=== PATIENT | female | born 1950 | race Caucasian/White ===

== ENCOUNTER 2020-09-08 18:42 | Emergency (ER) | payer MEDICARE, SELFPAY ==
--- NOTE | ~2020-09-08 | US_ITS ---
EXAMINATION: US ABDOMEN LIMITED CLINICAL INFORMATION: Right upper quadrant/epigastric pain.. COMPARISON: None TECHNIQUE: Real-time imaging of the right upper quadrant abdominal viscera. FINDINGS: PANCREAS: Visualized portions unremarkable. Tail obscured by interposed bowel gas. LIVER: Normal. The liver is normal in size. The liver contour is normal. Parenchymal echogenicity is normal. No focal hepatic lesion. There is no intrahepatic biliary duct dilatation seen. GALLBLADDER: The gallbladder is physiologically distended without evidence of stones, sludge, wall thickening or pericholecystic fluid. There are couple polyps measuring 3 to 4 mm, statistically cholesterolosis. Sonographic [place] sign is positive, nonspecific in the absence of additional imaging evidence of cholecystitis.. COMMON BILE DUCT: Normal in caliber measuring 0.8 cm in diameter. RIGHT KIDNEY: Normal. No hydronephrosis. No renal calculi or focal parenchymal lesions. The kidney measures 10.1 cm in maximum dimension. FREE FLUID: None. US/US abdomen limited IMPRESSION: No sonographic evidence of cholecystitis. There are couple polyps measuring 4 mm or less, statistically cholesterolosis. As a precaution, consider follow-up ultrasound in one year.
--- NOTE | ~2020-09-08 | XR_ITS ---
EXAMINATION: XR CHEST CLINICAL INFORMATION: Posterior rib pain COMPARISON: 04/30/2015 TECHNIQUE: 2 views of the chest were obtained. FINDINGS: No significant abnormality is noted involving the heart, lungs, mediastinum, bony thorax or soft tissues. XR/XR chest 2V IMPRESSION: Unremarkable examination.
[2020-09-08 19:00] VITALS: BP 140/74; PULSE 87; RESP 18; TEMP 37; O2SAT 99; BMI 32.1
[2020-09-08 22:38] VITALS: BP 144/74; PULSE 87; RESP 18; TEMP 36.9; O2SAT 98
--- NOTE | 2020-09-08 23:00 | ECG_ITS ---
Test Reason : WEAKNESS Blood Pressure : / mmHG Vent. Rate : 076 BPM Atrial Rate : 076 BPM P-R Int : 202 ms QRS Dur : 116 ms QT Int : 440 ms P-R-T Axes : 038 -48 -12 degrees QTc Int : 495 ms Normal sinus rhythm Left ventricular hypertrophy with QRS widening Prolonged QT Abnormal ECG No previous ECGs available Referred By: Carie Camejo Electronically Signed By:RAD SAMANIEGO
--- NOTE | 2020-09-08 23:17 | ED_ITS ---
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 She states she is up-to-date on vaccinations. Patient states that she began having back discomfort that started on Friday and states that her ?whole entire back bothers her to involve her abdomen as well as her legs?. She denies any fever but states she has had chills as well as urinary burning and noted frequency. She denies any recent cough, sore throat, chest pain/shortness of breath/palpitations. In addition, patient denies any recent falls. Related Data Allergies Allergy/AdvReac Type Severity Reaction Status Date / Time bee pollen [BEE STINGS] Allergy Unknown HIVES Unverified 12/09/19 17:43 cat dander Allergy Unknown EYES Unverified 12/09/19 17:43 SWELLING Bee Zee Allergy Unknown Uncoded 08/25/17 00:00 Review of Systems Review of Systems: Pertinent positives and negatives as stated in HPI 10 point review of systems is otherwise negative. [facility] Past Medical History Source: nursing notes reviewed Social History Social History Advance Directives: No Advance Directives Information Provided: No Physical Exam Vital Signs: Vital Signs: Last Vital Signs Temp 98.4 F 09/08/20 22:38 Pulse 82 09/09/20 02:00 Resp 17 09/09/20 02:00 BP 145/79 H 09/09/20 02:00 Pulse Ox 99 09/09/20 02:00 Body Mass Index 32.1 VITAL SIGNS: Reviewed. GENERAL: Well developed, well nourished, in no acute distress. HEAD: Normocephalic/atraumatic, EYES: PERRLA, EOMI OROPHARYNX: no oral lesions noted, posterior pharynx clear LUNGS: Normal breath sounds. No adventitious sounds or accessory muscle use. SpO2<98> CARDIOVASCULAR: Regular rate and rhythm without noted murmurs ABDOMEN: Soft, non-tender, non-distended with bowel sounds. BACK: A jumpy when spine is palpated but nontender, no CVA tenderness MUSCULOSKELETAL: No tenderness, deformities, or effusions noted on gross inspection. EXTREMITIES: No cyanosis, clubbing or edema. SKIN: Inspection of the skin reveals no rashes NEUROLOGIC: Alert and oriented x 4. Strength and sensation to light touch were grossly intact x 4, 5/5 symmetrical strength, sensation intact. Course Course Course Narrative: 70-year-old female with history and clinical presentation that is mildly ambiguous in nature but will proceed with evaluation for suspected UTI and possible pyelonephritis. Review of all investigations shows a mildly elevated platelet count but otherw ise there is no further evidence to explain patient's symptoms. Patient provided with combination analgesics and all results were discussed with her bedside. She was discharged home in stable condition with instructions to follow-up with her primary care provider for re-evaluation further outpatient management. Medical Decision Making Lab Data Result diagrams: 09/08/20 23:26 09/08/20 23:26 Labs: Lab Results 09/08/20 09/08/20 09/09/20 Range/Units 23:26 23:26 01:22 WBC 10.3 (4.8-10.8) X10*3/uL RBC 4.39 (4.20-5.50) X10*6/uL Hgb 13.4 (12.0-16.0) g/dl Hct 39.1 (37-47) % MCV 89.1 (80-98) fL MCH 30.5 (27.0-33.0) pg MCHC 34.3 (31.0-35.0) g/dl RDW 13.8 (11.0-16.0) % Plt Count 542 H (160-400) X10*3/uL MPV 10.5 (9.4-12.3) fL Immature Gran % (Auto) 0.7 H (0.0-0.4) % Neut % (Auto) 76.6 H (45-73) % Lymph % (Auto) 13.1 L (20-40) % [place] % (Auto) 5.5 (2-11) % Eos % (Auto) 3.3 (0-4) % Baso % (Auto) 0.8 (0-2) % Lymph # (Auto) 1.4 (1.2-4.9) X10*3/uL [place] # (Auto) 0.6 (0.1-1.2) X10*3/uL Eos # (Auto) 0.3 (0.0-0.4) X10*3/uL Baso # (Auto) 0.1 (0.0-0.2) X10*3/uL Abs Immat Gran (auto) 0.07 H (0.00-0.03) X10*3/uL Absolute Neuts (auto) 7.9 (2.0-8.3) X10*3/uL Absolute Nucleated RBC 0.000 (0.0-0.012) X10*3/uL Nucleated RBC % (auto) 0.0 (0.0-0.2) /100WBC Sodium 139 (135-145) mmol/L Potassium 4.0 (3.3-5.1) mmol/L Chloride 105 (96-108) mmol/L Carbon Dioxide 22 (22-29) mmol/L Anion Gap 16 (12-20) BUN 15 (9-16) mg/dL Creatinine 0.83 (0.5-1.4) mg/dL Estim Creat Clear Calc 60.1 Estimated GFR > 60 Random Glucose 100 (60-115) mg/dL Calcium 9.3 (8.4-10.2) mg/dL Total Bilirubin 0.4 (0.0-1.0) mg/dL AST 81 H (5-31) U/L ALT 120 H (0-31) U/L Alkaline Phosphatase 122 H (39-117) U/L Total Protein 7.2 (6.5-8.0) g/dL Albumin 3.9 (3.5-5.0) g/dL Urine Color DARK YELLOW Urine Appearance CLEAR Urine pH 5.5 (5.0-8.0) Ur Specific [place] >= 1.030 H (1.005-1.025) Urine Protein 1+ H (NEG-TRACE) MG/DL Urine Glucose (UA) 100 H (NEG) MG/DL Urine Ketones 5 (NEG) MG/DL Urine Blood NEG (NEG) Urine Nitrite NEG (NEG) Ur Leukocyte Esterase NEG (NEG) Urine RBC 0-2 (0) /HPF Urine WBC 0-2 (0-4) /HPF Ur Squamous Epith Cells 2+ /LPF Calcium Oxalate Crystal 1+ /LPF Urine Bacteria NONE /LPF Urine Mucus 4+ /LPF ECG Data Attestation: I personally reviewed and interpreted this ECG as follows: Prior ECG tracings: not available for review Interpretation: Normal sinus rhythm, HR -76, no evidence of ischemia, RI/QRS/QTC are mildly prolonged. Discharge Plan Discharge Clinical Impression: Weakness Patient Disposition: Home, Self-Care Instructions: Weakness (ED) Additional Instructions: 1. Resume all home medications as prescribed. 2. Follow-up with your primary care provider in the next 2-3 days for re-eval uation and further outpatient management. Return to the ER for any acute worsening of symptoms. Referrals: Jay Jay Gibbons MD [Primary Care Provider] - 2 days (Re-evaluation and assessment of patient's presentation to the ER for weakness and ?all over body discomfort?, but no acute findings were identified to better explain patient's condition.)
[2020-09-08] MEDS: 0.9 % Sodium Chloride 1,000 ML 999 ML IV (23:29)
[2020-09-08 23:34] LABS: MANUAL DIFF FLAG NO
[2020-09-08 23:35] LABS: Basophils Absolute Auto 0.1 X10*3/uL (0.0-0.2); Basophils Percent Auto 0.8 % (0-2); Eosinophils Absolute Auto 0.3 X10*3/uL (0.0-0.4); Eosinophils Percent Auto 3.3 % (0-4); Hematocrit 39.1 % (37-47); Hemoglobin 13.4 g/dl (12.0-16.0); Imm Gran Abs Auto 0.07 X10*3/uL (0.00-0.03); Imm Gran Pct Auto 0.7 % (0.0-0.4); Lymphocytes Absolute Auto 1.4 X10*3/uL (1.2-4.9); Lymphocytes Percent Auto 13.1 % (20-40); Mean Corpuscular HGB Conc 34.3 g/dl (31.0-35.0); Mean Corpuscular Hemoglobin 30.5 pg (27.0-33.0); Mean Corpuscular Volume 89.1 fL (80-98); Mean Platelet Volume 10.5 fL (9.4-12.3); Monocytes Absolute Auto 0.6 X10*3/uL (0.1-1.2); Monocytes Percent Auto 5.5 % (2-11); Neutrophils Absolute Auto 7.9 X10*3/uL (2.0-8.3); Neutrophils Percent Auto 76.6 % (45-73); Platelet Count 542 X10*3/uL (160-400); Red Blood Count 4.39 X10*6/uL (4.20-5.50); Red Cell Distribution Width 13.8 % (11.0-16.0); White Blood Count 10.3 X10*3/uL (4.8-10.8)
[2020-09-09] VITALS: BP 159/71; PULSE 75; RESP 17; O2SAT 97
[2020-09-09 00:03] LABS: Alanine Aminotransferase 120 U/L (0-31); Albumin Level 3.9 g/dL (3.5-5.0); Alkaline Phosphatase 122 U/L (39-117); Anion Gap 16 (12-20); Aspartate Amino Transferase 81 U/L (5-31); Bilirubin Total 0.4 mg/dL (0.0-1.0); Blood Urea Nitrogen 15 mg/dL (9-16); Calcium 9.3 mg/dL (8.4-10.2); Carbon Dioxide 22 mmol/L (22-29); Chloride 105 mmol/L (96-108); Creatinine Clr Calc Pharmacy 60.1; Estimated Glomerular Filt Rate > 60; Glucose Random 100 mg/dL (60-115); Sodium 139 mmol/L (135-145); Total Protein 7.2 g/dL (6.5-8.0)
[2020-09-09] MEDS: 0.9 % Sodium Chloride 1,000 ML 999 ML IV (01:27)
[2020-09-09 01:45] LABS: Glucose Urine UA 100 MG/DL (NEG); Leukocyte Esterase Urine NEG (NEG); Nitrite Urine NEG (NEG); PH 5.5 (5.0-8.0); Specific Gravity - Urine >= 1.030 (1.005-1.025); Urine Blood NEG (NEG); Urine Ketones 5 MG/DL (NEG); Urine Protein 1+ MG/DL (NEG-TRACE)
[2020-09-09 01:50] LABS: Appearance Urine CLEAR; Color Urine DARK YELLOW
[2020-09-09 02:00] VITALS: BP 145/79; PULSE 82; RESP 17; O2SAT 99
[2020-09-09 02:01] LABS: Calcium Oxalate Crystals Urine 1+ /LPF; Mucus Urine 4+ /LPF; RBC Urine 0-2 /HPF (0); Squamous Epithelial Cell Urine 2+ /LPF; WBC Urine 0-2 /HPF (0-4)
[2020-09-09] MEDS: Ibuprofen 400 MG TABLET PO (02:16)
[2020-09-09] MEDS: Acetaminophen 325 MG TABLET 975 MG PO (02:16)
== END 2020-09-09 03:56 | disposition home or self-care (01) ==
PROVIDERS: Emergency Provider Student in an Organized Health Care Education/Training Program; PCP Internal Medicine
DX: R53.1 Weakness (principal); R10.11 Right upper quadrant pain; R07.81 Pleurodynia; Z90.81 Acquired absence of spleen
CPT/HCPCS: 36415; 71046; 76705; 80053; 81001; 85025; 93005; 96360; 96361; 99284; 99285

== ENCOUNTER 2020-09-17 05:05 | Emergency (ER) | payer MEDICARE, SELFPAY ==
--- NOTE | ~2020-09-17 | CT_ITS ---
EXAMINATION: CT ANGIOGRAM OF THE CHEST WITH AND WITHOUT CONTRAST (CT PULMONARY ANGIOGRAM FOR PE) CLINICAL INFORMATION: Reason for Exam SOB, elevated dimer COMPARISON: Chest x-ray dated 09/17/2020. TECHNIQUE: Prior to contrast administration, noncontrast localization images were obtained. Subsequently, multidetector volumetric imaging was performed from the thoracic inlet to below the diaphragms following the administration of 80 mL Omnipaque 350 intravenous contrast. No contrast reaction reported Sagittal, coronal, and MIP oblique sagittal reformatted images were obtained on the CT workstation, uploaded to PACS, and reviewed. This CT examination was performed using dose optimization techniques as appropriate, variously including the following: *Automated exposure control *Adjustment of mA and/or kV according to patient size (this includes techniques or standardized protocols for targeted exams where dose is matched to indication/reason for exam; i.e. extremities or head) *Use of iterative reconstruction technique Total exam dose-length product 250 mGy-cm FINDINGS: Pulmonary arteries: The bolus timing on this study was acceptable for visualization of the pulmonary arterial tree. There are no intraluminal pulmonary arterial filling defects present to suggest pulmonary embolism in the main pulmonary artery, right and left main pulmonary artery, lobar and segmental branches. No evidence of right heart failure/elevated right heart pressures Lungs: The lungs are hypoinflated with dependent and scattered linear atelectasis seen bilaterally. No pulmonary nodules, masses, pleural effusion or pneumothorax. The central airways are patent. Aorta and heart: The heart is mildly enlarged. No bowing of the interventricular septum towards the left side is seen and no significant reflux of contrast into the IVC is noted. The aorta is normal. There is no pericardial effusion Lymphatic structures: There is no lymphadenopathy. Upper abdomen: Limited evaluation of the upper abdominal viscera demonstrates a small retrocardiac hiatal hernia. No other focal abnormality. Bones: Mild multilevel vertebral spondylosis. No significant focal findings. CT/CT angio chest PE protocol IMPRESSION: 1. No evidence of pulmonary embolism. 2. Scattered areas of atelectasis. 3. Small retrocardiac hiatal hernia. VTE: Negative
--- NOTE | ~2020-09-17 | XR_ITS ---
EXAMINATION: XR FOOT, RIGHT CLINICAL INFORMATION: Question glass in heel. COMPARISON: None TECHNIQUE: AP, lateral, and oblique views of the right foot. FINDINGS: There is loss of first MTP joint space with periarticular spurring. Rest of the joint space and into normal. There is no visible acute fracture or dislocation. The ankle mortise and subtalar joints are normal. The soft tissues are normal. XR/XR foot RT min 3V IMPRESSION: Mild osteoarthritic changes first MTP joint. No visible acute fracture or dislocation seen.
--- NOTE | ~2020-09-17 | XR_ITS ---
EXAMINATION: XR PORTABLE CHEST CLINICAL INFORMATION: Shortness of breath COMPARISON: 09/09/2020 TECHNIQUE: AP portable upright view of the chest FINDINGS: Mildly hyperexpanded. Small linear focus of scarring is present in the left midlung. No consolidation, pneumothorax, or pleural effusion. Cardiac and mediastinal contours are normal. Pulmonary vasculature is unremarkable. Old healed left humeral fracture. No acute osseous findings. Chronic right rotator cuff tear. Bones are osteopenic. XR/XR chest 1V IMPRESSION: No acute cardiopulmonary findings
[2020-09-17 05:11] VITALS: BP 107/48; BP 164/72; PULSE 64; PULSE 75; RESP 18; TEMP 36.8; O2SAT 100; BMI 29.9
[2020-09-17 05:14] VITALS: RESP 18
--- NOTE | 2020-09-17 05:14 | ECG_ITS ---
Test Reason : SOB Blood Pressure : / mmHG Vent. Rate : 067 BPM Atrial Rate : 067 BPM P-R Int : 178 ms QRS Dur : 124 ms QT Int : 444 ms P-R-T Axes : 023 -44 014 degrees QTc Int : 469 ms Normal sinus rhythm Left axis deviation Left ventricular hypertrophy with QRS widening Abnormal ECG When compared with ECG of 08-SEP-2020 23:20, No significant change was found Referred By: Gladys Coe Electronically Signed By:Stevo Camacho
--- NOTE | 2020-09-17 05:16 | ED.SOB ---
HPI - SOB/Dyspnea General Chief Complaint: Dyspnea Stated Complaint: sob Time Seen by Provider: 09/17/20 05:13 Source: patient and EMS Mode of arrival: EMS Limitations: no limitations History of Present Illness HPI Narrative: pt coms to the ed c/o SOB, started earlier this am. pt denies chest pain. pt states she has never been dx with anxiety/panick attacks. pt denies vomiting/diarrhea. EMS reports O2 sat of 100% on RA . pt denies any hx of asthma, copd. MD elicited complaint: shortness of breath Related Data Allergies Allergy/AdvReac Type Severity Reaction Status Date / Time bee pollen [BEE STINGS] Allergy Unknown HIVES Unverified 12/09/19 17:43 cat dander Allergy Unknown EYES Unverified 12/09/19 17:43 SWELLING Bee Zee Allergy Unknown Uncoded 08/25/17 00:00 Review of Systems Review of Systems: Constitutional : No Weight loss, No Fever, No Chills, No Night Sweats, No Fatigue, No Malaise ENT/Mouth : No Hearing loss, No Ear Pain, No Nasal Congestion, No Sinus Pain, No Hoarseness, No sore throat, No Rhinorrhea, No Swallowing Difficulty Eyes: No Eye Pain, No Swelling, No Redness, No Foreign Body, No Discharge, No Vision Changes Cardiovascular : No Chest Pain,no palpitations Respiratory : No Cough, No Sputum, No Wheezing, No Smoke Exposure, c/o sob Gastrointestinal : No Nausea, No Vomiting, No Diarrhea, No Constipation, No abdominal Pain, No Hematochezia, No Melena Genitourinary : no irregular bleeding, No Dysuria, No Urinary Frequency, No Hematuria, No Urinary Incontinence, No Urgency, No Flank Pain, No Urinary Flow Changes, No Hesitancy Musculoskeletal : No joint pain, No Myalgias, No Joint Swelling Skin : No Skin Lesions, No rash Neuro : No Weakness, No Numbness, No Paresthesias, No Loss of Consciousness, No Dizziness, No Headache Psych : No Anxiety/Panic, No Depression, No SI/HI/AH/VH, No Social Issues, Heme/Lymph: No Bruising, No Bleeding,No Lymphadenopathy Endocrine : No Polyuria, No Polydipsia, No Temperature Intolerance PMFSH Social History Social History Alcohol intake: current Patient Tobacco Use Status: Never used Tobacco Use of substances other than those prescribed or required for medical reasons: No Advance Directives: No Physical Exam Vital Signs: Vital Signs: Last Vital Signs Temp 98.3 F 09/17/20 05:11 Pulse 64 09/17/20 05:11 Resp 18 09/17/20 05:14 BP 107/48 L 09/17/20 05:11 Pulse Ox 100 09/17/20 05:11 Body Mass Index 29.9 Appearance: Alert. Oriented X3. No acute distress. seems very anxious Eyes: Pupils equal, round and reactive to light. ENT: Pharynx normal. Neck: Normal inspection. Neck supple. No lymph nodes noted. No crepitus CVS: Normal heart rate and rhythm. Pulses normal. Normal S1 and S2 Respiratory: No respiratory distress. Breath sounds normal. No Wheezing. No rales Abdomen: Soft and nontender. No rigidity. No distention. good BS x4 Skin: Skin warm and dry. Normal skin color. Normal skin turgor. Extremities: No lower extremity edema. No Lacerations. No Rash Neuro: Oriented X 3. No motor deficit. No sensory deficit. Moving all extermities. No slurred speech. Course Course Course Narrative: i discussed the EKG and trop with travis Galdamez ventricular strain. At this time, pt is asymptomatic. Of note, earlier today, pt was very anxious, she was given 1mg of IV ativan, a few minutes later pt went to sleep, O2 dropped to the low 80s. When we woke her up, O2 returned to 99% RA. CT for PE pending. Pt due to trop #2 at 8:50 am. Sign out given to DR. Palmer MDM - SOB/Dyspnea Lab Data Result diagrams: 09/17/20 05:50 09/17/20 05:50 Labs: Lab Results 09/17/20 09/17/20 09/17/20 Range/Units 05:50 05:50 05:50 WBC 11.3 H (4.8-10.8) X10*3/uL RBC 4.08 L (4.20-5.50) X10*6/uL Hgb 12.1 (12.0-16.0) g/dl Hct 36.5 L (37-47) % MCV 89.5 (80-98) fL MCH 29.7 (27.0-33.0) pg MCHC 33.2 (31.0-35.0) g/dl RDW 14.2 (11.0-16.0) % Plt Count 468 H (160-400) X10*3/uL MPV 11.1 (9.4-12.3) fL Immature Gran % (Auto) 1.5 H (0.0-0.4) % Neut % (Auto) 45.5 (45-73) % Lymph % (Auto) 41.9 H (20-40) % [place] % (Auto) 7.0 (2-11) % Eos % (Auto) 2.6 (0-4) % Baso % (Auto) 1.5 (0-2) % Lymph # (Auto) 4.8 (1.2-4.9) X10*3/uL [place] # (Auto) 0.8 (0.1-1.2) X10*3/uL Eos # (Auto) 0.3 (0.0-0.4) X10*3/uL Baso # (Auto) 0.2 (0.0-0.2) X10*3/uL Abs Immat Gran (auto) 0.17 H (0.00-0.03) X10*3/uL Absolute Neuts (auto) 5.2 (2.0-8.3) X10*3/uL Absolute Nucleated RBC 0.000 (0.0-0.012) X10*3/uL Nucleated RBC % (auto) 0.0 (0.0-0.2) /100WBC D-Dimer 529 NG/ML VBG pH (7.32-7.43) VBG pCO2 mmHg VBG pO2 mmHg VBG HCO3 (22-26) mmol/L VBG O2 Saturation % VBG Base Excess mmol/L Sodium 138 (135-145) mmol/L Potassium 3.7 (3.3-5.1) mmol/L Chloride 106 (96-108) mmol/L Carbon Dioxide 22 (22-29) mmol/L Anion Gap 14 (12-20) BUN 18 H (9-16) mg/dL Creatinine 0.78 (0.5-1.4) mg/dL Estim Creat Clear Calc 64.3 Estimated GFR > 60 Random Glucose 104 (60-115) mg/dL Calcium 9.2 (8.4-10.2) mg/dL Total Bilirubin 0.6 (0.0-1.0) mg/dL Direct Bilirubin 0.2 (0.0-0.5) mg/dL AST 40 H D (5-31) U/L ALT 59 H (0-31) U/L Alkaline Phosphatase 73 D (39-117) U/L Troponin I High Sens (<3.5-17.0) ng/L B-Natriuretic Peptide (<100) pg/mL Total Protein 6.2 L (6.5-8.0) g/dL Albumin 3.5 (3.5-5.0) g/dL 09/17/20 09/17/20 Range/Units 05:50 05:55 WBC (4.8-10.8) X10*3/uL RBC (4.20-5.50) X10*6/uL Hgb (12.0-16.0) g/dl Hct (37-47) % MCV (80-98) fL MCH (27.0-33.0) pg MCHC (31.0-35.0) g/dl RDW (11.0-16.0) % Plt Count (160-400) X10*3/uL MPV (9.4-12.3) fL Immature Gran % (Auto) (0.0-0.4) % Neut % (Auto) (45-73) % Lymph % (Auto) (20-40) % [place] % (Auto) (2-11) % Eos % (Auto) (0-4) % Baso % (Auto) (0-2) % Lymph # (Auto) (1.2-4.9) X10*3/uL [place] # (Auto) (0.1-1.2) X10*3/uL Eos # (Auto) (0.0-0.4) X10*3/uL Baso # (Auto) (0.0-0.2) X10*3/uL Abs Immat Gran (auto) (0.00-0.03) X10*3/uL Absolute Neuts (auto) (2.0-8.3) X10*3/uL Absolute Nucleated RBC (0.0-0.012) X10*3/uL Nucleated RBC % (auto) (0.0-0.2) /100WBC D-Dimer NG/ML VBG pH 7.44 H (7.32-7.43) VBG pCO2 29 mmHg VBG pO2 70 mmHg VBG HCO3 20 L (22-26) mmol/L VBG O2 Saturation 93.0 % VBG Base Excess -2.3 mmol/L Sodium (135-145) mmol/L Potassium (3.3-5.1) mmol/L Chloride (96-108) mmol/L Carbon Dioxide (22-29) mmol/L Anion Gap (12-20) BUN (9-16) mg/dL Creatinine (0.5-1.4) mg/dL Estim Creat Clear Calc Estimated GFR Random Glucose (60-115) mg/dL Calcium (8.4-10.2) mg/dL Total Bilirubin (0.0-1.0) mg/dL Direct Bilirubin (0.0-0.5) mg/dL AST (5-31) U/L ALT (0-31) U/L Alkaline Phosphatase (39-117) U/L Troponin I High Sens 96.3 H* (<3.5-17.0) ng/L B-Natriuretic Peptide 42 (<100) pg/mL Total Protein (6.5-8.0) g/dL Albumin (3.5-5.0) g/dL Imaging Data Chest x-ray: Radiologist's impression: Mildly hyperexpanded. Small linear focus of scarring is present in the left midlung. No consolidation, pneumothorax, or pleural effusion. Cardiac and mediastinal contours are normal. Pulmonary vasculature is unremarkable. Old healed left humeral fracture. No acute osseous findings. Chronic right rotator cuff tear. Bones are osteopenic. XR/XR chest 1V IMPRESSION: No acute cardiopulmonary findings ECG Data Attestation: I personally reviewed and interpreted this ECG as follows: Discharge Plan Discharge Clinical Impression: Acute dyspnea
[2020-09-17 05:57] LABS: MANUAL DIFF FLAG NO
[2020-09-17 05:59] LABS: Basophils Absolute Auto 0.2 X10*3/uL (0.0-0.2); Basophils Percent Auto 1.5 % (0-2); Eosinophils Absolute Auto 0.3 X10*3/uL (0.0-0.4); Eosinophils Percent Auto 2.6 % (0-4); Hematocrit 36.5 % (37-47); Hemoglobin 12.1 g/dl (12.0-16.0); Imm Gran Abs Auto 0.17 X10*3/uL (0.00-0.03); Imm Gran Pct Auto 1.5 % (0.0-0.4); Lymphocytes Absolute Auto 4.8 X10*3/uL (1.2-4.9); Lymphocytes Percent Auto 41.9 % (20-40); Mean Corpuscular HGB Conc 33.2 g/dl (31.0-35.0); Mean Corpuscular Hemoglobin 29.7 pg (27.0-33.0); Mean Corpuscular Volume 89.5 fL (80-98); Mean Platelet Volume 11.1 fL (9.4-12.3); Monocytes Absolute Auto 0.8 X10*3/uL (0.1-1.2); Neutrophils Absolute Auto 5.2 X10*3/uL (2.0-8.3); Neutrophils Percent Auto 45.5 % (45-73); Platelet Count 468 X10*3/uL (160-400); Red Blood Count 4.08 X10*6/uL (4.20-5.50); Red Cell Distribution Width 14.2 % (11.0-16.0); White Blood Count 11.3 X10*3/uL (4.8-10.8)
[2020-09-17 06:02] LABS: Venous Blood Gas Refer to POC result
[2020-09-17 06:04] LABS: VBG Base Excess -2.3 mmol/L; VBG HCO3 20 mmol/L (22-26); VBG pCO2 29 mmHg; VBG pH 7.44 (7.32-7.43); VBG pO2 70 mmHg
[2020-09-17 06:08] LABS: D Dimer 529 NG/ML
[2020-09-17 06:21] LABS: Alanine Aminotransferase 59 U/L (0-31); Albumin Level 3.5 g/dL (3.5-5.0); Alkaline Phosphatase 73 U/L (39-117); Anion Gap 14 (12-20); Aspartate Amino Transferase 40 U/L (5-31); Bilirubin Direct 0.2 mg/dL (0.0-0.5); Bilirubin Total 0.6 mg/dL (0.0-1.0); Blood Urea Nitrogen 18 mg/dL (9-16); Calcium 9.2 mg/dL (8.4-10.2); Carbon Dioxide 22 mmol/L (22-29); Chloride 106 mmol/L (96-108); Creatinine Clr Calc Pharmacy 64.3; Estimated Glomerular Filt Rate > 60; Glucose Random 104 mg/dL (60-115); Potassium 3.7 mmol/L (3.3-5.1); Sodium 138 mmol/L (135-145); Total Protein 6.2 g/dL (6.5-8.0)
[2020-09-17 06:26] LABS: B Type Natriuretic Peptide 42 pg/mL (<100); Troponin-I High Sensitivity 96.3 ng/L (<3.5-17.0)
--- NOTE | 2020-09-17 06:29 | ECG_ITS ---
Test Reason : REPEAT Blood Pressure : / mmHG Vent. Rate : 061 BPM Atrial Rate : 061 BPM P-R Int : 178 ms QRS Dur : 118 ms QT Int : 450 ms P-R-T Axes : 023 -44 000 degrees QTc Int : 453 ms Normal sinus rhythm Left axis deviation Left ventricular hypertrophy with QRS widening Abnormal ECG When compared with ECG of 17-SEP-2020 05:58, No significant change was found Referred By: Gladys Coe Electronically Signed By:Stevo Camacho
[2020-09-17] MEDS: LORazepam 2 MG/ML VIAL 1 MG IVPUSH (06:40)
[2020-09-17] MEDS: iohexoL 350 MG/ML 100 ML INFUS..BTL IV (07:34)
[2020-09-17 10:07] LABS: Troponin-I High Sensitivity 46.6 ng/L (<3.5-17.0)
[2020-09-17 10:50] VITALS: PULSE 75; RESP 18
== END 2020-09-17 11:24 | disposition home or self-care (01) ==
PROVIDERS: Emergency Medicine; Emergency Provider Emergency Medicine; PCP Internal Medicine
DX: R06.00 Dyspnea, unspecified (principal); R06.02 Shortness of breath; F41.9 Anxiety disorder, unspecified
CPT/HCPCS: 36415; 71045; 71275; 73630; 80048; 80076; 83880; 84484; 85025; 85379; 93005; 96374; 99284; 99285; J2060; Q9967

== ENCOUNTER 2023-05-09 08:00 | Outpatient (RCR) | payer MEDICARE, SELFPAY | END 2023-05-09 13:26 | disposition home or self-care (01) | LOC: HO.PT 08:00 | PROVIDERS: PCP Internal Medicine; Visit Provider Nurse Practitioner Family | DX: R60.0 Localized edema (principal); M25.511 Pain in right shoulder | CPT/HCPCS: 97110; 97140; 97150; 97162; 97530 ==